=== PATIENT | male | born 1995 | race Asian ===

== ENCOUNTER 2021-05-23 15:20 | Emergency (ER) | payer SELFPAY ==
[~2021-05-23] VITALS: Ht 175.3 cm; Wt 78.5 kg
[2021-05-23] MEDS ORDERED: PENI500T PO (15:36)
--- NOTE | 2021-05-23 16:00 | NUR ---
Gave pt RX and d/c instructions, pt verbalized understanding.
== END 2021-05-23 16:03 | disposition home or self-care (01) ==
LOC: ER 15:20
DX: S01.511D Laceration without foreign body of lip, subsequent encounter (principal); L08.9 Local infection of the skin and subcutaneous tissue, unspecified; W20.8XXD Other cause of strike by thrown, projected or falling object, subsequent encounter; F17.210 Nicotine dependence, cigarettes, uncomplicated
CPT/HCPCS: A4663